=== PATIENT | male | born 1985 | race Two or more races ===

== ENCOUNTER 2017-04-19 23:30 | Emergency (ER) | payer OTHER ==
[~2017-04-19] VITALS: Ht 172.7 cm; Wt 78.0 kg
[2017-04-19] MEDS ORDERED: FAMOTIDINE 20 MG/2 ML VIAL ONE (23:50)
[2017-04-19] MEDS ORDERED: methylPREDNISolone SOD SUCC PF 125 MG/2 ML VIAL. ONE (23:50)
[2017-04-19] MEDS ORDERED: diphenhydrAMINE 50 MG/ML VIAL ONE (23:50)
--- NOTE | 2017-04-20 00:03 | PHYS DOC ---
Past Medical History Past Medical History: No Pertinent History Additional Past Surgical Histo: Ear tubes and root canal Additional Information: Beer, occasionally , only like 6 at a time, but hadnt drank in 15 days prior to that Drug Use: None Adult General Chief Complaint Chief Complaint: ALLERGIC REACTION HPI HPI Patient is a 31 year old male who presents with acute allergic reaction. Approximately one hour prior to arrival he was eating homemade deep-fried tacos. Shortly after he started itching initially on his palms and soles and then all over. He then started feeling a significant clear his throat constantly. He notices eyes well as well. No difficulty swallowing however no drooling. Review of Systems Review of Systems Constitutional: Denies fever or chills Eyes: Denies change in visual acuity, redness, or eye pain; swelling of both eyelids HENT: Denies nasal congestion or sore throat Respiratory: Denies cough or shortness of breath; constant clearing of throat Cardiovascular: No chest pain GI: Denies abdominal pain, nausea, vomiting, bloody stools or diarrhea : Denies dysuria or hematuria Musculoskeletal: Denies back pain or joint pain Integument:itching "all over" Neurologic: Denies headache, focal weakness or sensory changes Current Medications Current Medications Current Medications Medications (Trade) Dose Ordered Sig/Iona Start Time Stop Time Status Last Admin Dose Admin Albuterol/ Ipratropium (Duoneb) 3 ml 1X ONCE 04/20/17 01:15 04/20/17 01:16 DC 04/20/17 01:16 3 ML Diphenhydramine HCl (Benadryl) 50 mg STK-MED ONCE 04/19/17 23:50 04/19/17 23:51 DC Epinephrine HCl (Adrenalin) 0.3 mg 1X ONCE 04/20/17 00:30 04/20/17 00:31 DC 04/20/17 00:13 0.3 MG Famotidine (Pepcid) 20 mg 1X ONCE 04/20/17 00:30 04/20/17 00:31 DC 04/20/17 00:17 20 MG Methylprednisolone Sodium Succinate (SOLU-Medrol 125MG VIAL) 125 mg 1X ONCE 04/20/17 00:30 04/20/17 00:31 DC 04/20/17 00:06 125 MG Allergies Allergies Allergies Coded Allergies Type Severity Reaction Last Updated Verified No Known Drug Allergies 04/19/17 No Physical Exam Physical Exam Constitutional: Well developed, well nourished, no acute distress, non-toxic appearance. HENT: Normocephalic, atraumatic, bilateral external ears normal, oropharynx moist, no oral exudates, nose normal. No drooling. Eyes: PERRLA, EOMI, conjunctiva normal, no discharge. Neck: Normal range of motion, no tenderness, supple, no stridor. Cardiovascular:Heart rate regular rhythm, no murmur Lungs & Thorax: Bilateral breath sounds clear to auscultation. Abdomen: Bowel sounds normal, soft, no tenderness, no masses, no pulsatile masses. Skin: Warm, dry, no erythema, no rash noted. Back: No tenderness, no CVA tenderness. Extremities: No tenderness, no cyanosis, no clubbing, ROM intact, no edema. Neurologic: Alert and oriented X 3, normal motor function, normal sensory function, no focal deficits noted. Current Patient Data Vital Signs Vital Signs Date Time Temp Pulse Resp B/P (MAP) Pulse Ox O2 Delivery O2 Flow Rate FiO2 04/20/17 00:52 95 20 136/71 (92) 100 Nasal Cannula 2.0 04/19/17 23:50 98.8 98.8 Course & Med Decision Making Course & Med Decision Making Evaluated patient upon arrival. Epi 0.3 mg IM; solumedrol 125 IV and Pepcid 20 IV. He already took benadryl at 2330 PM. At 0130 PM: much improved after intervention. Received duoneb as well. Home with rx: inhaler, steroids, pepcid and clarirtin. I have spoken with the patient and/or caregivers. I have explained the patient' s condition, diagnosis and treatment plan based on the information available to me at this time. I have answered the patient's and/or caregiver's questions and addressed any concerns. The patient and/or caregivers have as good an understanding of the patient's diagnosis, condition and treatment plan as can be expected at this point. The patient's condition is stable and appropriate for discharge from the emergency department. The patient will pursue further outpatient evaluation with the primary care physician or other designated or consulting physician as outlined in the discharge instructions. The patient and/or caregivers are agreeable to this plan of care and follow-up instructions have been explained in detail. The patient and/or caregivers have received these instructions in written format and have expressed an understanding of the discharge instructions. The patient and/or caregivers are aware that any significant change in condition or worsening of symptoms should prompt an immediate return to this or the closest emergency department or a call to 911. Sergio Disclaimer Sergio Disclaimer This electronic medical record was generated, in whole or in part, using a voice recognition dictation system. Departure Departure Impression: Primary Impression: Allergic reaction Disposition: HOME, SELF-CARE Condition: IMPROVED Patient Instructions: Food Allergy Scripts Albuterol Sulfate (PROAIR HFA INHALER) 8.5 Gm Hfa.aer.ad 1 PUFF INH PRN Q6HRS Y for SHORTNESS OF BREATH, #1 INHALER 0 Refills Prov: SARAH EAST MD 04/20/17 Methylprednisolone (MEDROL) 4 Mg Tab.ds.pk 1 PKG PO UD, #1 PKG Prov: SARAH EAST MD 04/20/17 Famotidine (PEPCID) 40 Mg Tablet 40 MG PO HS, #20 TAB Prov: SARAH EAST MD 04/20/17 Problem Qualifiers Primary Impression: Allergic reaction Encounter type: initial encounter Qualified Codes: T78.40XA - Allergy, unspecified, initial encounter SARAH EAST MD Apr 20, 2017 00:03
[2017-04-20] MEDS ORDERED: EPINEPHrine 1 MG/ML VIAL IM ONE (00:30)
[2017-04-20] MEDS ORDERED: FAMOTIDINE 20 MG/2 ML VIAL IVP ONE (00:30)
[2017-04-20] MEDS ORDERED: methylPREDNISolone SOD SUCC PF 125 MG/2 ML VIAL. IV ONE (00:30)
[2017-04-20] MEDS ORDERED: IPRATRPIUM/ALBUTEROL 0.5/2.5MG 3 ML NEBU. NEB ONE (01:15)
[2017-04-20] MEDS ORDERED: FAMO40TA57 PO (01:30)
[2017-04-20] MEDS ORDERED: METH4TAB2 PO (01:30)
[2017-04-20] MEDS ORDERED: PROAIR HFA8.5 GM INH (01:30)
[2017-04-20 01:40] VITALS: BP 127/64
== END 2017-04-20 01:45 | disposition home or self-care (01) ==
LOC: ER 23:30
DX: T78.40XA Allergy, unspecified, initial encounter (principal)
CPT/HCPCS: 94250; 94640; 96372; 96374; 96375; 99284; J0171; J2930; J7620; S0028